=== PATIENT | male | born 1980 | race Caucasian/White ===

== ENCOUNTER 2021-07-03 11:23 | Emergency (ER) | payer BC ==
[~2021-07-03] VITALS: Ht 180.3 cm; Wt 131.5 kg
--- NOTE | 2021-07-03 11:40 | NUR ---
Pt ambulatory to ED rm6. c/o swelling and pain w/ acitivity to LLE in the foot and ankle. VSS, afebrile. Pain in LLE rated 0/10 with rest. 6/10 w/ activity. Pt states this is reoccuring event appx 1xyear. has seen patient, orders received.
[2021-07-03 11:45] VITALS: BP 140/97
[2021-07-03] MEDS ORDERED: KENALOG-40 IM STA (11:53)
--- NOTE | 2021-07-03 11:53 | ER.PDOC ---
General Chief Complaint: Requesting Medical Care Stated Complaint: GOUT/LEFT ANKLE Time seen by MD: 11:48 Source: patient Exam Limitations: no limitations History of Present Illness Initial Comments This is a 40-year-old man who comes to the emergency department with left foot pain for the past 2 days. He states that he has gout and it flares up once a ye ar about this time during the year. He has pain with walking and is usually associated with weather change. Where: home Severity: moderate Past Medical History Medical History: other (The patient states he has gout but he has not had any work-up on this, he has not had any aspiration of the joint fluid looking for crystals.) Review of Systems Constitutional: denies no symptoms reported, denies see HPI, denies chills, denies diaphoresis, denies fever, denies malaise, denies weakness, denies other EENTM: denies no symptoms reported, denies see HPI, denies eye pain, denies blurred vision, denies tearing, denies double vision, denies ear pain, denies ear discharge, denies nose pain, denies nose congestion, denies throat pain, denies throat swelling, denies mouth pain, denies mouth swelling, denies other Respiratory: denies no symptoms reported, denies see HPI, denies cough, denies orthopnea, denies shortness of breath, denies stridor, denies wheezing, denies other Cardiovascular: denies no symptoms reported, denies see HPI, denies chest pain, denies edema, denies palpitations, denies syncope, denies other Gastrointestinal: denies no symptoms reported, denies see HPI, denies abdominal pain, denies constipation, denies diarrhea, denies nausea, denies vomiting, denies other Genitourinary: denies no symptoms reported, denies see HPI, denies discharge, denies dysuria, denies frequency, denies hematuria, denies pain, denies other Musculoskeletal: denies no symptoms reported, denies see HPI, denies back pain, denies gout, denies joint pain, denies joint swelling, denies muscle pain, denies muscle stiffness, denies neck pain, denies other Skin: denies no symptoms reported, denies see HPI, denies change in color, denies change in hair/nails, denies dryness, denies lesions, denies lumps, denies rash, denies other Psychiatric/Neurological: denies no symptoms reported, denies see HPI, denies anxiety, denies depressed, denies emotional problems, denies headache, denies numbness, denies paresthesia, denies pre-existing deficit, denies seizure, denies tingling, denies tremors, denies weakness, denies other All Other Systems: Reviewed and Negative Physical Exam General Appearance: Alert, No Apparent Distress Foot: nml inspection, non-tender, nml color/temp, skin intact Ankle: nml inspection, non-tender, nml ROM, no joint swelling, skin intact, tenderness, swelling (No erythema to the overlying skin,) Knee: nml inspection, non-tender, nml ROM, no joint swelling Thigh/Hip: nml inspection Gait: normal Neuro/Vasc/Tendon: sensation nml, motor nml, no vascular compromise, tendon function nml Skin: warm/dry Head/ENT: nml inspection, pharynx nml Neck/Back: nml inspection, non-tender Abdomen: non-tender, pelvis stable Results/Orders Results/Orders Orders - ERA CANTU MD Triamcinolone Acetonide ([id number]) (07/03/21 11:53) Vital Signs Date Time Temp Pulse Resp B/P (MAP) Pulse Ox O2 Delivery O2 Flow Rate FiO2 07/03/21 11:45 98.7 87 18 96 Room Air 07/03/21 11:45 98.7 87 18 07/03/21 11:45 98.7 87 18 96 Progress Progress It does not appear that the patient has gout as he does not have erythema over the skin, he would benefit from a work-up for gout, but we will place him on steroids here to help with his symptoms. ER DEPART Departure Time of Disposition: 11:51 Disposition: 01 HOME / SELF CARE / HOMELESS Impression: Primary Impression: Osteoarth NOS-ankle Condition: Stable Patient Instructions: Osteoarthritis Referrals: PCP,UNKNOWN (PCP) PRIMARY CARE PROVIDER Additional Instructions: Make sure to follow-up with your primary doctor, I do not believe you have gout but rather osteoarthritis. It would be beneficial to have an aspiration of the joint space to find out if you have gout or not. In the meantime, if you start having worsening symptoms take meloxicam once a day until symptoms are gone. Duration or Time Spent with Pa: Unknown ERA CANTU MD Jul 03, 2021 11:53
[2021-07-03] MEDS ORDERED: KENALOG-40 ONE (12:00)
== END 2021-07-03 12:06 | disposition home or self-care (01) ==
LOC: ER 11:23
DX: M19.072 Primary osteoarthritis, left ankle and foot (principal)
CPT/HCPCS: 96372; 99284; J3301